=== PATIENT | female | born 1990 | race Asian ===

== ENCOUNTER 2021-12-14 12:47 | Emergency (ER) | payer MEDICAID ==
[~2021-12-14] VITALS: Ht 152.4 cm; Wt 45.8 kg
[2021-12-14 12:54] VITALS: BP 110/65
[2021-12-14] MEDS ORDERED: DOXY-690 PO (13:09)
[2021-12-14] MEDS ORDERED: cefTRIAXone 500 MG in LIDOCAINE MPF 1% 1 ML IM ONE (13:10)
[2021-12-14] MEDS ORDERED: cefTRIAXone 500 MG VIAL ONE (14:12)
[2021-12-14] MEDS ORDERED: LIDOCAINE MPF 1% 5 ML ONE (14:30)
[2021-12-14 14:40] VITALS: BP 112/78
--- NOTE | 2021-12-14 14:41 | NUR ---
Patient discharged with v/s stable. Written and verbal after care instructions given and explained. Patient verbalized understanding. Ambulatory with steady gait. All questions addressed prior to discharge. Advised to follow up with PMD.
--- NOTE | 2021-12-15 18:55 | NUR ---
LATE ENTRY. RECEIVED POSITIVE CHLAMYDIA RESULT. FORM GIVEN TO DR ALMAZAN, TREATMENT APPROPRIATE. FORM GIVEN TO INFECTION CONTROL AND PLACED IN BINDER
== END 2021-12-14 14:41 | disposition home or self-care (01) ==
LOC: MED 12:47
DX: A74.9 Chlamydial infection, unspecified (principal); Z79.2 Long term (current) use of antibiotics; Z88.8 Allergy status to other drugs, medicaments and biological substances; Z91.011 Allergy to milk products; Z91.010 Allergy to peanuts
CPT/HCPCS: 81002; 81025; 87491; 96372; 99283; J0696; J2001